=== PATIENT | female | born 2000 | race Two or more races ===

== ENCOUNTER 2023-11-14 10:13 | Emergency (ER) | payer OTHER ==
[~2023-11-14] VITALS: Ht 160 cm; Wt 61.2 kg
[2023-11-14 11:15] VITALS: BP 111/66; TEMP 98; O2SAT 98
== END 2023-11-14 11:15 | disposition home or self-care (01) ==
LOC: ER 10:19
DX: S06.0XAA Concussion with loss of consciousness status unknown, initial encounter (principal); V00.148A Other scooter (nonmotorized) accident, initial encounter; Y93.89 Activity, other specified; Y92.89 Other specified places as the place of occurrence of the external cause; Y99.8 Other external cause status
CPT/HCPCS: 70450-TC